=== PATIENT | female | born 1990 | race African-American/Black ===

== ENCOUNTER 2016-11-18 13:18 | Emergency (ER) | payer OTHER ==
[~2016-11-18] VITALS: Ht 182.9 cm; Wt 104.3 kg
[2016-11-18] MEDS ORDERED: MUPIROCIN15 GM TOP (14:58)
[2016-11-18 15:11] VITALS: BP 118/74
== END 2016-11-18 15:10 | disposition home or self-care (01) ==
LOC: ER 13:18
DX: S41.112A Laceration without foreign body of left upper arm, initial encounter (principal); Z23 Encounter for immunization; W25.XXXA Contact with sharp glass, initial encounter; Y93.89 Activity, other specified; Y92.89 Other specified places as the place of occurrence of the external cause; Y99.8 Other external cause status